=== PATIENT | male | born 1985 | race Caucasian/White ===

== ENCOUNTER → 2024-01-29 | Day surgery (SDC) | payer BC, OTHER ==
[~2024-01-29] MED LIST: AMOXICILLIN250 MG PO; DEXMEDETOMIDINE HCL 200 MCG/2 ML VIAL ONE; FENTANYL CITRATE/PF 100MCG/2 ML INJ ONE; HYDROCORTISONE ACETATE 25 MG/SUPP.RECT SUPP RC ONE; IBUPROFEN 600 MG; KETAMINE 50MG/5ML SYR ONE; LIDOCAINE HCL 2% LOCAL INJ 5 ML SDV VIAL INJ ONE; LUNESTA3 MG PO; MIDAZOLAM HCL 2 MG/2 ML VIAL ONE; PROPOFOL IV EMULSION 10 MG/ML 50 ML VIAL IV ONE
[2024-01-29] MEDS: LACTATED RINGER'S 1,000 ML ONE (08:41)
[2024-01-29 10:44] VITALS: TEMP 98.1
[2024-01-29] MEDS: HYDROCORTISONE ACETATE 25 MG/SUPP.RECT SUPP RC ONE (10:58)
[2024-01-29 11:30] VITALS: BP 127/84; PULSE 69; RESP 16; O2SAT 98
== END | disposition home or self-care (01) ==
LOC: OR 07:53
PROVIDERS: ATTEND Internal Medicine Gastroenterology
DX: K62.5 Hemorrhage of anus and rectum (principal); D12.0 Benign neoplasm of cecum; D17.5 Benign lipomatous neoplasm of intra-abdominal organs; K62.89 Other specified diseases of anus and rectum; K64.8 Other hemorrhoids; Z71.3 Dietary counseling and surveillance; F90.9 Attention-deficit hyperactivity disorder, unspecified type; Z71.89 Other specified counseling; Z79.899 Other long term (current) drug therapy; Z68.30 Body mass index [BMI] 30.0-30.9, adult; Z86.16 Personal history of COVID-19
CPT/HCPCS: 45380; J2001; J2250; J2704; J3010; J7121; 45378; 45385